=== PATIENT | male | born 1950 | race Two or more races ===

== ENCOUNTER 2020-08-28 05:40 | Day surgery (SDC) | payer MEDICARE, OTHER ==
--- NOTE | 2020-08-24 18:21 | Pre-Procedure Note/Attestation ---
Pre-Procedure Note/Attestation Complete Prior to Procedure Planned Procedure: left Procedure Narrative: Cataract extraction with intraocular lens implant left eye Indications for Procedure Pre-Operative Diagnosis: Nuclear sclerotic cataract left eye Attestation I attest that I discussed the nature of the procedure; its benefits; risks and complications; and alternatives (and the risks and benefits of such alternatives), prior to the procedure, with the patient (or the patient's legal statement services representative). I attest that, if there was a reasonable possibility of needing a blood transfusion, the patient (or the patient's legal statement services representative) was given the [facility] standardized written summary, pursuant to the Renard Roland Blood Safety Act ([place] Health and Safety Code # 1645, as amended). I attest that I re-evaluated the patient just prior to the surgery and that there has been no change in the patient's H&P, except as documented below: Keaton Cook MD Aug 24, 2020 18:21
--- NOTE | 2020-08-24 18:22 | Opthalmology H&P ---
Ophthalmology H&P H&P Chief Complaint: decreased vision in left eye HPI Vision Affects Ability to: read, manage personal affairs HPI Narrative Blurry vision Exam Visual Acuity: OD 20/60 OS 20/70 Tension: OD 18 OS 16 Eye Exam: normal OU: external exam, palpebral fissure-width, marginal reflex distance, levator function, corneas, anterior chambers, fundus exam; findings: lens - IOL-OD, NS Cataract OS Assessment/Plan Treatment Plan: cataract extraction w/ lens implant Goals of Treatment: improvement of vision, enhance quality of life Attestation Attestation The risks and benefits of the surgery as well as alternative procedures were explained to the patient in detail. Keaton Cook MD Aug 24, 2020 18:22
[2020-08-25 10:20] LABS: BASOPHILS % (AUTO) 1.4 % (0.0-2.0); EOSINOPHILS % (AUTO) 2.1 % (0.0-3.0); HEMATOCRIT 47.4 % (42.0-52.0); HEMOGLOBIN 15.8 G/DL (14.2-18.0); LYMPHOCYTES % (AUTO) 36.9 % (20.0-45.0); MEAN CORPUSCULAR VOLUME 92 FL (80-99); MONOCYTES % (AUTO) 9.9 % (1.0-10.0); NEUTROPHILS % (AUTO) 49.7 % (45.0-75.0); PLATELET COUNT 258 K/UL (150-450); RED BLOOD COUNT 5.14 M/UL (4.70-6.10); RED CELL DISTRIBUTION WIDTH 12.8 % (11.6-14.8); WHITE BLOOD COUNT 5.4 K/UL (4.8-10.8)
[2020-08-25 10:27] LABS: CALCIUM 8.6 MG/DL (8.5-10.1); CREATININE 1.2 MG/DL (0.55-1.30); POTASSIUM 4.7 MMOL/L (3.5-5.1)
[~2020-08-28] VITALS: Ht 167.6 cm; Wt 82.6 kg
[~2020-08-28 05:40] MED LIST: ASPIRIN81 MG ORAL; CYCLOBENZAPRINE10 MG ORAL; IBUPROFEN600 M1 ORAL
[2020-08-28] MEDS ORDERED: Maxitrol Opth Oint 3.5gm ONE (05:41)
[2020-08-28] MEDS ORDERED: prednisoLONE acetate 1% Opth Susp 1ml ONE (05:41)
[2020-08-28] MEDS ORDERED: EPINEPHrine 1mg/1ml Amp ONE (06:52)
[2020-08-28] MEDS ORDERED: BSS 15ml BTL ONE (06:52)
[2020-08-28] MEDS ORDERED: Sodium Hyaluronate 10 mg/ml 0.85ml ONE (06:52)
[2020-08-28] MEDS ORDERED: BSS 500ml btl ONE (06:52)
[2020-08-28] MEDS ORDERED: Povidone-Iodine 5% opth solution ONE (06:52)
[2020-08-28] MEDS ORDERED: Lidocaine 4% Amp 5ml ONE (06:52)
[2020-08-28] MEDS: Tropicamide 1% Opth 15ml Soln LEFT EYE SCH ×3 (06:55→07:13)
[2020-08-28] MEDS: Phenylephrine 10% Opth Soln 5ml LEFT EYE SCH ×3 (06:55→07:13)
[2020-08-28] MEDS: Diclofenac Sod 0.1% Op Soln LEFT EYE SCH ×3 (06:55→07:13)
[2020-08-28] MEDS: Tobramycin Op Soln 0.3% 5ml LEFT EYE SCH ×3 (06:55→07:13)
--- NOTE | 2020-08-28 06:56 | Anethesia Preoperative Eval ---
Anesthesia Pre-op PMH/ROS General Date of Evaluation: Aug 28, 2020 Anesthesiologist: Moy ASA Score: ASA 2 Mallampati Score Class I : Soft palate, uvula, fauces, pillars visible Class II: Soft palate, uvula, fauces visible Class III: Soft palate, base of uvula visible Class IV: Only hard plate visible Mallampati Classification: Class II Surgeon: Joyce Diagnosis: Left cataract Surgical Procedure: Left cataract extraction with IOL Anesthesia History: none Family History: no anesthesia problems Allergies: Coded Allergies: No Known Allergies (Unverified , 08/24/20) Medications: see eMAR Patient NPO?: Yes NPO Date: Aug 28, 2020 NPO Time: 00:00 Past Medical History Cardiovascular: Reports: HTN; Denies: CAD, [place], valve dz, arrhythmia, other Pulmonary: Denies: asthma, COPD, SERGEY, other Gastrointestinal/Genitourinary: Reports: GERD; Denies: CRI, ESRD, other Neurologic/Psychiatric: Denies: dementia, CVA, depression/anxiety, TIA, other Endocrine: Denies: DM, hypothyroidism, steroids, other HEENT: Reports: cataract (L), NIGHTMUTE (L), NIGHTMUTE (R); Denies: cataract (R), glaucoma, other Hematology/Immune: Denies: anemia, DVT, bleeding disorder, other Musculoskeletal/Integumentary: Reports: OA, other - LBP; Denies: RA, DJD, DDD, edema PSxH Narrative: right cataract Anesthesia Pre-op Phys. Exam Physician Exam see chart Constitutional: NAD Cardiovascular: RRR Respiratory: CTA Airway Exam Mallampati Score: Class II MO: full ROM: full Anesthesia Pre-op A/P Labs see chart Studies Pre-op Studies: EKG - sr Risk Assessment & Plan Assessment: ASA II Plan: MAC Status Change Before Surgery: No Pre-Antibiotics Drug: N/A Bonny Winter MD Aug 28, 2020 06:56
[2020-08-28 06:57] VITALS: BP 143/84
[2020-08-28] MEDS ORDERED: Proparacaine 0.5% Opth Soln 15ml LEFT EYE ONE (07:00)
[2020-08-28] MEDS ORDERED: LR 1000ml 1,000 ML IVLG SCH (07:00)
[2020-08-28] MEDS ORDERED: DiphenhydrAMINE 50mg/ml Inj IVP PRN (07:00)
[2020-08-28] MEDS ORDERED: Akten 3.5% 1ml Btl LEFT EYE ONE (07:00)
[2020-08-28] MEDS ORDERED: Tetracaine 0.5% Opth 4ml Soln LEFT EYE ONE (07:00)
[2020-08-28] MEDS ORDERED: Labetalol 5mg/ml 20ml vial IV PRN (07:00)
[2020-08-28] MEDS ORDERED: BENADRYL25 MG ORAL (07:04)
[2020-08-28] MEDS ORDERED: LR 1000ml ONE (08:14)
[2020-08-28] MEDS ORDERED: Sterile Water Irrig 1000ml IRRIG ONE (08:14)
[2020-08-28] MEDS ORDERED: NS Irrig 1000ml ONE (08:14)
[2020-08-28] MEDS ORDERED: fentaNYL 100 mcg/2 mL IV ONE (08:17)
[2020-08-28] MEDS ORDERED: Lidocaine 1% MPF 10mg/ml 5ml ONE (08:17)
[2020-08-28] MEDS ORDERED: Midazolam 2mg/2ml Inj ONE (08:17)
[2020-08-28 09:04] VITALS: BP 159/84
[2020-08-28] MEDS ORDERED: acetaZOLAMIDE 500mg Inj ONE (09:07)
--- NOTE | 2020-08-28 09:07 | 48 Hour Post Anesthesia Eval ---
Post Anesthesia Evaluation Procedure: Left cataract extraction with IOL Date of Evaluation: Aug 28, 2020 Airway: patent Nausea: No Vomiting: No Pain Intensity: 0 Hydration Status: adequate Cardiopulmonary Status: at baseline Mental Status/LOC: patient returned to baseline Post-Anesthesia Complications: 0 Follow-up care needed: ready to discharge Bonny Winter MD Aug 28, 2020 09:07
--- NOTE | 2020-08-28 09:07 | Immediate Post-Op Evaluation ---
Immediate Post-Op Evalulation Immediate Post-Op Evalulation Procedure: Left cataract extraction with IOL Date of Evaluation: Aug 28, 2020 Time of Evaluation: 09:09 IV Fluids: 150 Blood Products: 0 Estimated Blood Loss: 0 Urinary Output: 0 Blood Pressure Systolic: 159 Blood Pressure Diastolic: 91 Pulse Rate: 62 Respiratory Rate: 16 O2 Sat by Pulse Oximetry: 98 Temperature (Fahrenheit): 98.2 Pain Score (1-10): 0 Nausea: No Vomiting: No Complications 0 Patient Status: awake, reacts, patent, none Hydration Status: adequate Drug: N/A Bonny Winter MD Aug 28, 2020 09:06
[2020-08-28 09:10] VITALS: BP 142/86
[2020-08-28 09:20] VITALS: BP 160/85
[2020-08-28 09:30] VITALS: BP 155/81
[2020-08-28 09:43] VITALS: BP 147/82
--- NOTE | 2020-08-29 08:49 | Brief Operative Note ---
Immediate Post Operative Note Operative Note Chief Complaint: Blurry vision Pre-op Diagnosis: Nuclear sclerotic cataract left eye Procedure: Cataract extraction with IOL implant left eye Post-op Diagnosis: Pseudo OS Findings: consistent w/pre-op dx studies Surgeon: Keaton Cook MD Anesthesiologist: Bonny Winter MD Anesthesia: MAC Specimen: none Complications: none Condition: stable Fluids: LR Estimated Blood Loss: none Drains: none Implant(s) used?: Yes - IOL-OS Keaton Cook MD Aug 29, 2020 08:49
--- NOTE | 2020-08-29 08:52 | Operative Note - PDOC ---
Operative Note Operative Note Date of Operation/Procedure: Aug 28, 2020 Chief Complaint: Blurry vision Pre-op Diagnosis: Nuclear sclerotic cataract left eye Procedure: Cataract extraction with IOL implant left eye Post-op Diagnosis: Pseudo OS Operative Findings: consistent w/pre-op dx studies Surgeon: Keaton Cook MD Anesthesiologist: Bonny Winter MD Anesthesia: MAC Specimen: none Complications: none Condition: stable Fluids: LR Estimated Blood Loss: none Drains: none Implant(s) used?: Yes - IOL-OS Indications for Procedure Nuclear sclerotic cataract let eye Description of Procedure This patient has been complaining visually significant cataract in the left eye with the best corrected visual acuity of 20/50 under moderate glare conditions worse. The patient complains of difficulties with glare in performing activities of daily living and wants to manage personal affairs with comfort and accuracy and see well enough to move with safety at home and outdoors. The risks, benefits and alternatives of the procedure were discussed with the patient in the office prior to scheduling surgery. All questions from the patient were answered after the surgical procedure was explained in detail. The risks of the procedure as explained to the patient include, but are not limited to, pain, infection, bleeding, loss of vision, retinal detachment, need for further surgery, loss of lens nucleus, double vision, etc. Alternative procedures were discussed which include, to do nothing or seek a second opinion. Informed consent for this procedure was obtained from the patient. The patient was referred to a primary care physician for a cardiopulmonary clearance prior to surgery, after proper evaluation was done patient was properly scheduled for outpatient surgery. The patient was brought to the operating room where the anesthesiologist e stablished I.V. lines and cardiac monitoring leads. Mild intravenous sedation was administered. The patient was then prepared with a 5% solution of povidone-iodine to the conjunctival fornix and lashes, and a 5% solution of povidone-iodine to the lids and periorbital skin. The patient was then draped in the usual sterile fashion. A lid speculum was then placed in the operative eye. A keratome blade was then used to create a biplanar incision into the anterior chamber. Viscoelastics was then instilled into the anterior chamber. A 3-mm single pass clear corneal incision was made just anterior to the vascular arcade of the temporal limbus using a keratome. Anterior capsulorrhexis was created. The nucleus was hydrodissected and hydrodelineated, and was freely movable in the capsular bag. The nucleus was then phacoemulsified. Following the deep groove formation, the lens was split bimanually and epicortex removed under vacuum burst-mode phacoemulsification. Peripheral cortex was removed with the irrigation and aspiration handpiece. The capsular bag was expanded with viscoelastic. The intraocular lens was then inspected for right power and size and thought to be satisfactory. The implant was inspected under the microscope and found to be free of defects. The implant was inserted into the cartridge system under viscoelastic and placed in the capsular bag. The trailing haptic was positioned with the cartridge system. Viscoelastics was removed from the anterior chamber using the irrigation and aspiration unit. The corneal wound was then tested for leaks and none were found. The lid speculum were then removed. Sponge and needle counts were correct. An eye patch and shield were placed over the operative eye. The patient was taken to the recovery room in stable condition. There were no complications. The patient tolerated the procedure well. The patient was then transferred to the ambulatory surgery unit in stable and satisfactory condition, was given detailed written instructions and asked to follow up in the office the next day. Keaton Cook MD Aug 29, 2020 08:52
== END 2020-08-28 10:30 | disposition home or self-care (01) ==
LOC: SUR 05:40
DX: H25.12 Age-related nuclear cataract, left eye (principal); I10 Essential (primary) hypertension; K21.9 Gastro-esophageal reflux disease without esophagitis; M19.90 Unspecified osteoarthritis, unspecified site
CPT/HCPCS: 36415; 66984; 80048; 85025; 85610; 85730; 94003; J0171; J1100; J1120; J2250; J3010; J3370; J7120; U0002; V2632; 94150